=== PATIENT | male | born 1935 | race Two or more races ===

== ENCOUNTER 2016-07-15 13:03 | Emergency (ER) | payer MEDICARE, OTHER ==
[~2016-07-15 13:03] MED LIST: SUCCINYLCHOLINE CHLORIDE INJ 200 MG/10 ML VIAL ONE
--- NOTE | 2016-07-15 13:24 | ER Document Report ---
ED Neuro Symptoms/Deficit - General Mode of Arrival: Medic Information source: Patient, Relative, Emergency Med Personnel Notes: Patient is an 80-year-old male presenting to the emergency department via EMS concerned of stroke symptoms onset at some point last night or this morning. Patient's states that he ate cereal this morning, but was unable to stand up after that, and fell down. Patient's noticed something wrong when she noticed that he wasn't breathing like he normally does when he sleeps at 0600 this morning. Patient's denies any loss of consciousness. As of now, patient is experiencing slurred speech, left-sided deficit, right-sided facial droop. There is evidence of vomit on his shirt. EMS states that he was 97% oxygen saturation on room air. Patient has a different story, stating that he fell in the bathroom this morning and his was unable to help him up, so she called an ambulance. Patient has a history of heart murmur, right knee replacement, and cortisone shots in his left shoulder (last week). - HPI Patient complains to provider of: Difficulty standing, Facial Droop - Right, Falling, Speech Impairment, Weakness - Left sided Onset: This morning Awoke with symptoms: Yes Exact time of onset: unknown Symptoms are: Noted on awakening Duration: Continues in ED, More than 3 hrs Pain Level: Denies Context: Falling Loss of consciousness: No loss of consciousness Was STROKE ALERT Called: Yes Baseline Cognitive: Alert, oriented X 3 Alert To: Name/Voice Patient Orientation: Person, Place, Time, Events New weakness: LUE, LLE, R facial Decreased ability to stand/walk: Cannot stand Impaired speech/swallowing: Difficult Associated symptoms: denies: Headache <STACY OLIVER - Last Filed: 07/15/16 14:40> <HAO GASCA - Last Filed: 07/15/16 17:35> - General Chief Complaint: S/S of Possible Stroke Stated Complaint: STROKE ALERT - Related Data Allergies/Adverse Reactions: Penicillins Allergy (Verified 07/15/16 13:34) Past Medical History - General Information source: Patient, Relative, Emergency Med Personnel, [facility] Records - Social History Smoking Status: Unknown if Ever Smoked Lives with: Spouse/Significant other Family History: Reviewed & Not Pertinent - Past Medical History Cardiac Medical History: Reports: Hx Heart Murmur Musculoskeltal Medical History: Reports Hx Arthritis Past Surgical History: Reports: Hx Orthopedic Surgery - Right knee replacement <KARTHIK OLIVERSSICA - Last Filed: 07/15/16 14:40> Review of Systems - Review of Systems Constitutional: See HPI, Weakness EENT: No symptoms reported Cardiovascular: No symptoms reported Respiratory: No symptoms reported Gastrointestinal: No symptoms reported Genitourinary: No symptoms reported Male Genitourinary: No symptoms reported Musculoskeletal: No symptoms reported Skin: No symptoms reported Hematologic/Lymphatic: No symptoms reported Neurological/Psychological: See HPI, Weakness - Left side deficit, Speech impairment <KARTHIK OLIVERSSICA - Last Filed: 07/15/16 14:40> Physical Exam - Vital signs Interpretation: Hypertensive - General General appearance: Lethargic - HEENT Head: Normocephalic, Atraumatic <STACY OLIVER - Last Filed: 07/15/16 14:40> - Vital signs Vitals: Pulse Resp BP Pulse Ox 82 20 152/100 H 98 07/15/16 13:05 07/15/16 13:05 07/15/16 13:05 07/15/16 13:05 <HAO GASCA - Last Filed: 07/15/16 17:35> Course - Laboratory Result Diagrams: 07/15/16 13:21 07/15/16 13:21 - Consults anesthesia Time consulted: 13:18 - Paged Consulted provider: will come to ER - to secure airway for transfer. [facility] Time consulted: 13:44 Reason for consultation: 07/15/16 13:44 Dr. Johnson states that there are no beds at [facility], and suggests trying another facility. [place] Transfer Line Time consulted: 14:00 - Paged to discuss patient transfer, awaiting return call. [facility] transfer line Time consulted: 14:40 Reason for consultation: 07/15/16 14:42 [facility] Spann has not returned the call, so we are contacting [facility] transfer center. <STACY OLIVER - Last Filed: 07/15/16 14:40> - Re-evaluation Re-evalutation: 07/15/16 16:52 I personally performed the services described in the documentation, reviewed and edited the documentation which was dictated to my scribe in my presence, and it accurately records my words and actions. Patient presents emergency Department with an unknown time of onset severe strokelike symptoms sent directly to CT scanner. I went over to the CT scanner got report from EMS. EMS gave a slightly different report then the patient and the . They said that they reported that 9:00 this morning she tried to walk him to have breakfast and he fell. Patient briefly told us that he had breakfast but was unable to [place] any further history when the right arrives she says she has no idea when the onset of symptoms were. Patient arrived with severe severe right-sided facial droop partial gag reflex. In the left upper extremity left lower extremity leaning to the left. He was quickly ascertained and talk to Dr. Hugo showing a subacute right basal ganglial or infarct without hemorrhage. Due to the fact that the patient was out of the window for thrombolytics this was discussed as well. Patient presented to be an extremely difficult airway when I assessed the airway. I contacted our regional stroke center at [facility] Dr. Johnson and they stated that the patient should be intubated for flight but that they did not have any beds. Contacted anesthesia who came down and intubated the patient without any difficulty. At this point I contacted [facility] spoke with Dr. Siddharth Virgen at 1350 he called me back at 1445 he stated along with the transfer line at that time that the patient was on a long waiting list and they didn't expect to get a bed anytime soon and I communicated with them at this point that I was going to go ahead and call another facility try to get him closer they verbalize understanding of this I went ahead and call Dr. Landrum at [facility] who accepted the patient and sent and accepting crew at 1442. [facility] helicopter showed up prior to the [facility] helicopter getting here stating that the patient got a bed. We were never contacted in regards to any beds being available and had discussed with the transfer line making other arrangements. At this point the helicopter crew was here and so I went ahead and transfer the patient via [facility] and canceled the [facility] transport. Patient has remained stable blood pressure controlled multiple updates with and family. Spoke with Dr. Siddharth Virgen in [place] who said that there was a waiting list and they didn't think there be any beds available anytime soon. Therefore I contacted [facility] Dr. Diaz who agreed to accept the transfer of the patient and helicopter was in route. [facility] helicopter showed up in the emergency from stating that they had a bed they did not call us back and stated they had a bed so we went ahead and transfer them with [place] called [facility] back and cancel [facility] transport. 07/15/16 17:26 07/15/16 17:33 07/15/16 17:34 - Vital Signs Vital signs: Temp Pulse Resp BP Pulse Ox 97.3 F 79 10 L 135/91 H 100 07/15/16 13:42 07/15/16 13:08 07/15/16 15:45 07/15/16 16:15 07/15/16 16:15 - Laboratory Result Diagrams: 07/15/16 13:21 07/15/16 13:21 Laboratory results interpreted by me: 07/15/16 07/15/16 13:21 13:21 RDW 14.9 H Lymphocytes % 9.1 L Monocytes % 15.5 H Absolute Monocytes 1.6 H BUN 29 H <HAO GASCA - Last Filed: 07/15/16 17:35> Critical Care Note - Critical Care Note Total time excluding time spent on procedures (mins): 120 <HAO GASCA - Last Filed: 07/15/16 17:35> ED [employer]/Exc Criteria ED NIH Stroke Scale - NIH Stroke Scale *: 1. NIH scale should be completed with appropriate accompanying assessment tools. *: 2. The NIH should reflect what the patient is capable of doing and should not be coached by the clinician. 1a. Level of Consciousness: 0=Alert;keenly responsive -: 1=Drowsy -: 2=Obtunded -: 3=Coma/unresponsive or reflex to noxious stimuli. 1a. Responses: 1 1b. Orientation Questions: a. What month is it? -: b. How old are you? -: 0=Answers both questions correctly. -: 1=Answers one question correctly or patient is intubated or has orotracheal trauma. -: 2=Answers neither question correctly. 1b. Responses: 0 1c. Response to commands: a. Open and close eyes? -: b. Youth Development Professional and release hand? -: Credit is given despite weakness. Demonstration of task is permitted. Substitute command if hands cannot be used. -: 0=Performs both tasks correctly -: 1=Performs one task correctly -: 2=Performs neither task correctly 1c. Responses: 0 2. Gaze: Establish eye contact and instruct patient to "Follow my finger" -: 0=Normal -: 1=Partial gaze palsy. Gaze is abnormal in one or both eyes, but where forced deviation or total gaze paresis is not present. -: 2=Forced deviation or total gaze paresis. 2. Responses: 1 3. Visual [place]: Sees fingers in all four quadrants. -: 0=No visual loss. -: 1=Partial hemianopsia. -: 2=Complete hemianopsia. -: 3=Bilateral hemianopsia (including Cortical blindness) 4. Facial Movement: Instruct patient to: -: a. Show me your teeth -: b. Raise your eyebrows -: c. Close your eyes -: d. Smile -: 0=Normal symmetrical movement -: 1=Minor paralysis (flattened nasolabial fold, asymmetry on smiling). -: 2=Partial paralysis (total or near total paralysis of lower face). -: 3=Complete paralysis of upper and lower face 5. Motor functions (left arm): Alternate sides and extend each arm with palms down (90 degrees if sitting or 45 degrees for supine). -: 0=No drift;limb holds for full 10 seconds. -: 1=Drift; limb holds but drifts down before full 10 seconds, but does not hit bed. -: 2=Some effort against gravity; limb cannot get to or maintain position. -: 3=No effort against gravity; limb falls. -: 4=No movement. -: UN=Amputation, joint fusion, explain in comments. 5. Motor Functions (right arm): Alternate sides and extend each arm with palms down (90 degrees if sitting or 45 degrees for supine). -: 0=No drift;limb holds for full 10 seconds. -: 1=Drift; limb holds but drifts down before full 10 seconds, but does not hit bed. -: 2=Some effort against gravity; limb cannot get to or maintain position. -: 3=No effort against gravity; limb falls. -: 4=No movement. -: UN=Amputation, joint fusion, explain in comments. 6. Motor Functions (left leg): With patient lying supine, alternate sides and extend each leg (30 degrees always while supine). -: 0=No drift, leg holds position for full 5 seconds -: 1=Drift; leg falls before full 5 seconds but does not hit bed. -: 2=Some effort against gravity, leg falls to bed but some effort against gravity. -: 3=No effort against gravity, leg falls to bed immediately. -: 4=No movement. -: UN=Amputation, joint fusion; explain in comments. 6. Motor Functions (right leg): With patient lying supine, alternate sides and extend each leg (30 degrees always while supine). -: 0=No drift, leg holds position for full 5 seconds -: 1=Drift; leg falls before full 5 seconds but does not hit bed. -: 2=Some effort against gravity, leg falls to bed but some effort against gravity. -: 3=No effort against gravity, leg falls to bed immediately. -: 4=No movement. -: UN=Amputation, joint fusion; explain in comments. 7. Limb Ataxia: With eyes open instruct patient to: -: a. "Touch your finger to your nose". -: b. "Touch your heel to your lewis" -: 0=Absent -: 1=Present in one limb. -: 2=Present in two limbs. -: UN=Amputation or joint fusion; explain in comments. 8. Sensory: Test sensation using pinprick or noxious stimuli. Test as many body parts as possible. -: 0=Normal;no sensory loss -: 1=Mile to moderate sensory loss (patient feels pin prick but is less sharp on affected side). -: 2=Severe or total sensory loss. 9. Best Language: Instruct patient to: -: a. "Describe what you see in this picture." -: b. "Name the items in this picture." -: c. "Read these sentences." -: 0=No aphasia, normal -: 1=Mild to moderate aphasia. -: 2=Severe aphasia -: 3=Mute, global aphasia, no usable speech or auditory comprehension. 10. Articulation, Dysarthia: Instruct patient to: -: "Read these words" or "Repeat these words" -: 0=Normal -: 1=Mild to moderate; patient may slur some words but can be understood without difficulty. -: 2=Severe; patients speech so slurred as to be unintelligible in the absence of dysphasia. -: UN=Intubated or other physical barrier, explain in comments. 11. Extinction or inattention: 0=No abnormality -: 1= Visual, tactile, auditory, spatial, or personal inattention or extinction to bilateral simulation in one or the sensory modalities. -: 2=Profound james-inattention or james-inattention to more than one modality; does not recognize own hand. Total Score: 2 <STACY OLIVER - Last Filed: 07/15/16 14:40> Discharge <STACY OLIVER - Last Filed: 07/15/16 14:40> <HAO GASCA - Last Filed: 07/15/16 17:35> - Discharge Clinical Impression: subacute ischemic infarct, CVA symptoms requiring intubation Condition: Serious Disposition: [facility] Scribe Documentation - Scribe Written by Scribe:: Stacy Oliver 07/15/2016 1319 acting as scribe for :: Dr. Gasca <STACY OLIVER - Last Filed: 07/15/16 14:40>
[2016-07-15 13:40] LABS: PROTHROMBIN TIME 13.2 SEC (11.4-15.4)
[2016-07-15 13:41] LABS: PARTIAL THROMBOPLASTIN TIME 28.4 SEC (23.5-35.8)
[2016-07-15 13:55] LABS: ALANINE AMINOTRANSFERASE 25 U/L (21-72); ALBUMIN 4.3 g/dL (3.5-5.0); ALKALINE PHOSPHATASE 79 U/L (38-126); ANION GAP 12 (5-19); ASPARTATE AMINO TRANSFERASE 24 U/L (17-59); BILIRUBIN,DIRECT 0.4 mg/dL (0.0-0.4); BILIRUBIN,TOTAL 0.9 mg/dL (0.2-1.3); BLOOD UREA NITROGEN 29 mg/dL (7-20); CALCIUM 9.4 mg/dL (8.4-10.2); CARBON DIOXIDE 29 mmol/L (22-30); CHLORIDE 103 mmol/L (98-107); CREATINE KINASE 57 U/L (55-170); CREATININE RESULT 1.08 mg/dL (0.52-1.25); GLUCOSE 87 mg/dL (75-110); POTASSIUM 4.7 mmol/L (3.6-5.0); SODIUM 143.5 mmol/L (137-145); TOTAL PROTEIN 8.1 g/dL (6.3-8.2)
[2016-07-15] MEDS ORDERED: ETOMIDATE INJ/PF 20 MG/10 ML SDV IV ONE (14:01)
[2016-07-15] MEDS ORDERED: PROPOFOL 100 ML IV ONE (14:02)
[2016-07-15 14:04] LABS: ABSOLUTE BASOPHILS # (AUTO) 0.1 10^3/uL (0.0-0.2); ABSOLUTE EOSINOPHILS # (AUTO) 0.2 10^3/uL (0.0-0.6); ABSOLUTE LYMPHOCYTES (AUTO) 0.9 10^3/uL (0.5-4.7); ABSOLUTE MONOCYTES (AUTO) 1.6 10^3/uL (0.1-1.4); ABSOLUTE NEUT (AUTO) 7.4 10^3/uL (1.7-8.2); BASOPHILS % (AUTO) 0.9 % (0-2); EOSINOPHILS % (AUTO) 1.7 % (0-6); HEMATOCRIT 45.3 % (37.9-51.0); HEMOGLOBIN 15.1 g/dL (13.5-17.0); LYMPHOCYTES % (AUTO) 9.1 % (13-45); MEAN CORPUSCULAR HEMOGLOBIN 31.1 pg (27.0-33.4); MEAN CORPUSCULAR HGB CONC 33.3 g/dL (32.0-36.0); MEAN CORPUSCULAR VOLUME 93 fl (80-97); MONOCYTES % (AUTO) 15.5 % (3-13); RED BLOOD COUNT 4.85 10^6/uL (4.35-5.55); RED CELL DISTRIBUTION WIDTH 14.9 % (11.5-14.0); SEGMENTED NEUTROPHILS % (AUTO) 72.8 % (42-78); WHITE BLOOD COUNT 10.2 10^3/uL (4.0-10.5)
[2016-07-15 14:07] LABS: CREATINE KINASE MB 1.43 ng/mL (<4.55); TROPONIN I 0.017 ng/mL
[2016-07-15] MEDS ORDERED: PROPOFOL 100 ML IV PRN (14:36)
[2016-07-15] MEDS ORDERED: VECURONIUM BROMIDE INJ 10 MG VIAL IV ONE (15:07)
[2016-07-15] MEDS ORDERED: MIDAZOLAM 2 MG/2 ML INJ ONE (15:07)
[2016-07-15 17:32] VITALS: BP 115/85
--- NOTE | 2016-07-15 20:26 | EKG REPORT ---
SEVERITY:- ABNORMAL ECG - PACEMAKER SPIKES OR ARTIFACTS ATRIAL FIBRILLATION LEFT AXIS DEVIATION : Confirmed by: Rah Ashley 15-Jul-2016 20:24:56
== END 2016-07-15 17:05 | disposition short-term general hospital (02) ==
LOC: ER 13:03
PROC: 0BH17EZ Insertion of Endotracheal Airway into Trachea, Via Natural or Artificial Opening (ICD-10-PCS; principal; 2016-07-15)
DX: I63.9 Cerebral infarction, unspecified (principal); W19.XXXA Unspecified fall, initial encounter; Y92.009 Unspecified place in unspecified non-institutional (private) residence as the place of occurrence of the external cause
CPT/HCPCS: 93005; 99291; 99292; 51702; 36415; 82553; 82550; 85025; 85610; 85730; 80053; 84484; 71010; 70450; 93010; 31500; J2250; J2704; J3490; J0330

== ENCOUNTER 2018-10-05 14:38 | Emergency (ER) | payer MEDICARE, OTHER ==
[2018-10-05 14:46] VITALS: BP 143/79
--- NOTE | 2018-10-05 15:29 | ER Document Report ---
ED General - General Chief Complaint: Laceration Stated Complaint: HAND AND LEG LACERATION Time Seen by Provider: 10/05/18 15:28 TRAVEL OUTSIDE OF THE [place] IN LAST 30 DAYS: No - HPI Notes: 82-year-old male to the emergency department with complaints of laceration to his left pinky finger as well as to his right upper thigh that occurred just prior to arrival. States he is using a cylinder grinder to make chicken cubes when the blade "blew up". States the blade of the cylinder grinder cut his hand as well as his thigh. States that he is on Eliquis so he was bleeding quite a bit. States that he is not not sure of his tetanus status. Denies any change in his range of motion of the right leg or the left hand. He is right-hand dominant. - Related Data Allergies/Adverse Reactions: Penicillins Allergy (Verified 10/05/18 14:43) Past Medical History - General Information source: Patient, Relative - Social History Smoking Status: Never Smoker Chew tobacco use (# tins/day): No Frequency of alcohol use: None Drug Abuse: None Family History: Reviewed & Not Pertinent Patient has suicidal ideation: No Patient has homicidal ideation: No - Past Medical History Cardiac Medical History: Reports: Hx Hypercholesterolemia, Hx Hypertension, Hx Heart Murmur Renal/ Medical History: Denies: Hx Peritoneal Dialysis Musculoskeletal Medical History: Reports Hx Arthritis Past Surgical History: Reports: Hx Orthopedic Surgery - Right knee replacement Review of Systems - Review of Systems Constitutional: denies: Chills, Fever EENT: No symptoms reported Cardiovascular: denies: Chest pain, Palpitations, Heart racing, Syncope, Dizziness, Lightheaded Respiratory: denies: Cough, Short of breath Gastrointestinal: denies: Abdominal pain, Diarrhea, Nausea, Vomiting Musculoskeletal: Other - Laceration to the right upper thigh and to the left pinky finger. Left pinky finger pain. Skin: Other - Laceration to the left pinky finger and to the right upper thigh, abrasion to the right upper arm Neurological/Psychological: No symptoms reported -: Yes All other systems reviewed and negative Physical Exam - Vital signs Vitals: Temp Pulse Resp BP Pulse Ox 98.7 F 78 18 143/79 H 98 10/05/18 14:42 10/05/18 14:42 10/05/18 14:42 10/05/18 14:42 10/05/18 14:42 Interpretation: Normal - General General appearance: Appears well In distress: None - HEENT Head: Normocephalic, Atraumatic Eyes: Normal Pupils: PERRL - Respiratory Respiratory status: No respiratory distress Chest status: Nontender Breath sounds: Normal Chest palpation: Normal - Cardiovascular Rhythm: Regular Heart sounds: Normal auscultation Murmur: No - Abdominal Inspection: Normal Distension: No distension Bowel sounds: Normal Tenderness: Nontender Organomegaly: No organomegaly - Back Back: Normal, Nontender - Extremities Hand: Laceration - A laceration to the lateral aspect of the left pinky finger with mild oozing of blood. There is noted ecchymosis to the edges of the wound. There is no other abrasion or laceration to the hand or to the right hand. Range of motion of all fingers against resistance and flexion, extension, adduction, abduction, opposition with 5 out of 5 strength. Cap refill is less than 2 seconds. Radial pulses are intact and equal. No evidence of tendon la ceration. No: No evidence of FB, Swelling, Tendon deficit - Neurological Neuro grossly intact: Yes Cognition: Normal Orientation: AAOx4 Samara Coma Scale Eye Opening: Spontaneous Samara Coma Scale Verbal: Oriented Samara Coma Scale Motor: Obeys Commands Samara Coma Scale Total: 15 Speech: Normal Motor strength normal: LUE, RUE, LLE, RLE Sensory: Normal - Psychological Associated symptoms: Normal affect, Normal mood - Skin Skin Temperature: Warm Skin Moisture: Dry Skin Color: Normal - There is a puncture wound to the anterior right thigh with mild surrounding ecchymosis. Bleeding is controlled. Wound is explored and there is no evidence of foreign body. Course - Vital Signs Vital signs: Temp Pulse Resp BP Pulse Ox 98.7 F 78 18 143/79 H 98 10/05/18 14:42 10/05/18 14:42 10/05/18 14:42 10/05/18 14:42 10/05/18 14:42 - Transfer of Care Notes: 10/05/18 17:17 imPression: Left pinky laceration with no evidence of tendon laceration. Patient tolerated repair well. There is a puncture wound to the right thigh that does not require suturing. We will plan on updating the patient's tetanus shot. We will send home with Keflex for coverage for dirty wound. Bleeding was controlled at time of discharge. We will have patient return in 7 days for suture removal. Patient and significant other who is bedside agree with the plan. Procedures - Laceration/Wound Repair Left Lateral Finger Time completed: 17:18 Wound length (cm): 3 Wound's Depth, Shape: Superficial Laceration pre-procedure: Sterile PPE donned, Sterile drapes applied, Shur-Clens applied Anesthetic type: 1% Lidocaine Volume Anesthetic (mLs): 5 Wound explored: No foreign body removed Irrigated w/ Saline (mLs): 100 Wound Debrided: Minimal Wound Repaired With: Sutures Suture Size/Type: 4:0, Ethilon Number of Sutures: 5 Layer Closure?: No Post-procedure wound care: Splint applied Post-procedure NV exam normal: Yes Complications: No Discharge - Discharge Clinical Impression: Finger laceration, Puncture wound of thigh Condition: Good Disposition: HOME, SELF-CARE Instructions: Tetanus Immunization Given (OM), Laceration Care (OM), Soap Cleansing (OM) Additional Instructions: Remove dressing carefully in 24 hours. Complete antibiotics. Suture removal in 7 days. Wear splint to protect finger. Prescriptions: Doxycycline Hyclate 100 mg PO BID #14 capsule Referrals: TANJA NICHOLS FNP [Primary Care Provider] - 10/12/18 (For suture removal. )
[2018-10-05] MEDS ORDERED: LIDOCAINE 1% INJ-PF (10 MG/ML) 30 ML SDV INJ ONE (15:42)
--- NOTE | 2018-10-05 15:46 | RADIOLOGY REPORT (SQ) ---
EXAM DESCRIPTION: FEMUR RIGHT COMPLETED DATE/TIME: 10/05/2018 3:37 pm REASON FOR STUDY: possible foreign object, bleeding COMPARISON: None. NUMBER OF VIEWS: Two views. TECHNIQUE: Two radiographic images acquired of the right femur to include hip and knee in at least o ne projection. LIMITATIONS: None. FINDINGS: MINERALIZATION: Normal. BONES: No acute fracture. No worrisome bone lesions. SOFT TISSUES: No obvious swelling or foreign body. OTHER: Total knee arthroplasty. IMPRESSION: No foreign body or fracture identified. TECHNICAL DOCUMENTATION: JOB ID: [id number] [employer]- All Rights Reserved Reading location - IP/workstation name: [email or web address]
--- NOTE | 2018-10-05 15:47 | RADIOLOGY REPORT (SQ) ---
EXAM DESCRIPTION: HAND LEFT 3 VIEWS COMPLETED DATE/TIME: 10/05/2018 3:37 pm REASON FOR STUDY: possible foreign object COMPARISON: None. EXAM PARAMETERS: NUMBER OF VIEWS: Three views. TECHNIQUE: AP, lateral and oblique radiographic images acquired of the left hand. LIMITATIONS: None. FINDINGS: MINERALIZATION: Normal. BONES: No acute fracture or dislocation. No worrisome bone lesions. JOINTS: Degenerative joint changes seen in the 1st interphalangeal joint and in some of the distal in terphalangeal joints. SOFT TISSUES: There is a small radiopaque foreign body in the soft tissues in the tip of the 3rd digi t. OTHER: No other significant finding. IMPRESSION: Foreign body. Degenerative joint disease. TECHNICAL DOCUMENTATION: JOB ID: [id number] [employer]- All Rights Reserved Reading location - IP/workstation name: [email or web address]
[2018-10-05] MEDS ORDERED: DIPH/PERTUSS(ACELL)/TETANUS VAC/PF 0.5 ML SYR (>=10YO) IM ONE (17:06)
== END 2018-10-05 18:15 | disposition home or self-care (01) ==
LOC: ER 14:38
DX: S61.217A Laceration without foreign body of left little finger without damage to nail, initial encounter (principal); S71.111A Laceration without foreign body, right thigh, initial encounter; W29.0XXA Contact with powered kitchen appliance, initial encounter; Y92.009 Unspecified place in unspecified non-institutional (private) residence as the place of occurrence of the external cause; E78.00 Pure hypercholesterolemia, unspecified; I10 Essential (primary) hypertension; Z79.01 Long term (current) use of anticoagulants; Z96.651 Presence of right artificial knee joint; Z23 Encounter for immunization
CPT/HCPCS: 99283; 90471; 73552; 73130; 90715; 12002; J3490

== ENCOUNTER 2018-10-12 11:46 | Emergency (ER) | payer MEDICARE, OTHER ==
[2018-10-12 12:06] VITALS: BP 125/84
--- NOTE | 2018-10-12 12:48 | ER Document Report ---
ED Suture/Wound Recheck - General Chief Complaint: Suture Removal Stated Complaint: SUTURE REMOVAL Time Seen by Provider: 10/12/18 12:15 Primary Care Provider: TANJA NICHOLS FNP [Primary Care Provider] - Follow up as needed Mode of Arrival: Ambulatory Information source: Patient Notes: 82-year-old male presented to ED for removal of sutures to his left fifth f terrence. Old chart stated that he had 5 sutures but only 4 sutures were noted at this time. Patient is alert oriented respirations regular and unlabored speaking in full sentences walks with even steady gait. TRAVEL OUTSIDE OF THE [place] IN LAST 30 DAYS: No - HPI Previous ED treatment: Laceration repair Antibiotics given previously: Prescription Quality of pain: Achy Severity: Mild Pain Level: 1 Context: Injury Symptoms since procedure: Pain. denies: Drainage, Fever, Numbness, Red streaks, Redness, Swelling, Weakness Exacerbated by: Movement Relieved by: Denies - Related Data Allergies/Adverse Reactions: Penicillins Allergy (Verified 10/12/18 11:49) Past Medical History - General Information source: Patient - Social History Smoking Status: Never Smoker Frequency of alcohol use: None Drug Abuse: None Lives with: Family Family History: Reviewed & Not Pertinent - Past Medical History Cardiac Medical History: Reports: Hx Hypercholesterolemia, Hx Hypertension, Hx Heart Murmur Pulmonary Medical History: Reports: None EENT Medical History: Reports: None Neurological Medical History: Reports: None Endocrine Medical History: Reports: None Renal/ Medical History: Reports: None Malignancy Medical History: Reports None GI Medical History: Reports: None Musculoskeletal Medical History: Reports Hx Arthritis Skin Medical History: Reports None Psychiatric Medical History: Reports: None Traumatic Medical History: Reports: None Infectious Medical History: Reports: None Past Surgical History: Reports: Hx Orthopedic Surgery - Right knee replacement Review of Systems - Review of Systems Constitutional: No symptoms reported EENT: No symptoms reported Cardiovascular: No symptoms reported Respiratory: No symptoms reported Gastrointestinal: No symptoms reported Genitourinary: No symptoms reported Male Genitourinary: No symptoms reported Musculoskeletal: No symptoms reported Skin: Other - Needs sutures removed from left pinky finger Hematologic/Lymphatic: No symptoms reported Neurological/Psychological: No symptoms reported -: Yes All other systems reviewed and negative Physical Exam - Vital signs Vitals: Temp Pulse Resp BP Pulse Ox 98.9 F 75 18 125/84 95 10/12/18 12:05 06/25/19 12:05 10/12/18 12:05 10/12/18 12:05 10/12/18 12:05 Interpretation: Normal - General General appearance: Appears well, Alert - HEENT Head: Normocephalic, Atraumatic Eyes: Normal Pupils: PERRL - Respiratory Respiratory status: No respiratory distress Chest status: Nontender Breath sounds: Normal Chest palpation: Normal - Cardiovascular Rhythm: Regular Heart sounds: Normal auscultation Murmur: No - Abdominal Inspection: Normal Distension: No distension Bowel sounds: Normal Tenderness: Nontender Organomegaly: No organomegaly - Back Back: Normal, Nontender - Extremities General upper extremity: Normal color, Normal ROM, Normal temperature General lower extremity: Normal inspection, Nontender, Normal color, Normal ROM, Normal temperature, Normal weight bearing. No: Cha's sign Hand: Tender, Laceration - Healing laceration to left pinky finger. Incision opened up minimally when sutures were removed so Steri-Strips were placed., No evidence of human bite, No evidence of FB. No: Abrasion, Deformity, Dislocation, Ecchymosis, Instability, Swelling, Tendon deficit - Neurological Neuro grossly intact: Yes Cognition: Normal Orientation: AAOx4 Byers Coma Scale Eye Opening: Spontaneous Byers Coma Scale Verbal: Oriented Samara Coma Scale Motor: Obeys Commands Samara Coma Scale Total: 15 Speech: Normal Motor strength normal: LUE, RUE, LLE, RLE Sensory: Normal - Psychological Associated symptoms: Normal affect, Normal mood - Skin Skin Temperature: Warm Skin Moisture: Dry Skin Color: Normal Course - Vital Signs Vital signs: Temp Pulse Resp BP Pulse Ox 98.9 F 75 18 125/84 95 10/12/18 12:05 10/12/18 12:05 10/12/18 12:05 10/12/18 12:05 10/12/18 12:05 Procedures - Laceration/Wound Repair Left Finger 5th digit Time completed: 14:50 Wound length (cm): 2 Wound's Depth, Shape: Superficial, Linear Laceration pre-procedure: Sterile PPE donned Anesthetic type: Other Volume Anesthetic (mLs): 0 Wound explored: Clean Irrigated w/ Saline (mLs): 10 Wound Repaired With: Steri-strips Discharge - Discharge Clinical Impression: Visit for suture removal Condition: Stable Disposition: HOME, SELF-CARE Instructions: Suture Removal Additional Instructions: Care of Steri-Strip Closure Your cut has been closed up with a special surgical tape. For this type of cut, it can replace stitches. You must protect the wound just as you would with stitches, however. For the first few days, keep the wound area completely dry. This also means you should avoid activity which makes you sweat. Do not move the area if motion stretches or wrinkles the strips. Don't allow the area to be bumped -- if bleeding occurs, the blood can make the strips loosen. The strips are somewhat waterproof. After a few days, the physician may allow you to shower. Be sure to ask if it's OK. Do not remove the tape until it peels off by itself. At that time, the wound should be healed. SOAP CLEANSING: Gently wash the wound daily using a mild soap (like Ivory, Phisoderm, Neutrogena). Use warm water, rubbing gently until all debris, ooze, and crusting have been washed from the wound. Allow to dry briefly (about 10 minutes) after cleaning. Repeat this cleansing at least three times a day for the first two days and then once or twice a day. ANTIBIOTIC OINTMENT PROTECTION: Your wounds are such that dressing them is not practical or optional. After cleansing, you should apply a thin coating of antibiotic ointment (Bacitracin, not Neosporin) to the wounds at least three times daily. This l essens infection risk, and may decrease the amount of scarring. Use a q-tip or dull butter knife, not your finger, to apply this ointment. Any debris or ooze which builds up in the ointment should be gently rubbed off with a sterile gauze pad. Harder crusting may need to be gently scrubbed off with a clean wash cloth with soap and warm water, perhaps applying a warm, wet wash cloth to the wound for ten minutes first. Development of redness, severe itching, or blistering may mean allergy to the ointment. See the doctor. FOLLOW-UP CARE: If you have been referred to a physician for follow-up care, call the physicians office for an appointment as you were instructed or within the next two days. If you experience worsening or a significant change in your symptoms, notify the physician immediately or return to the Emergency Department at any time for re-evaluation. Referrals: TANJA NICHOLS FNP [Primary Care Provider] - Follow up as needed
== END 2018-10-12 12:59 | disposition home or self-care (01) ==
LOC: ER 11:46
DX: S61.217D Laceration without foreign body of left little finger without damage to nail, subsequent encounter (principal); X58.XXXD Exposure to other specified factors, subsequent encounter; I10 Essential (primary) hypertension; Z88.0 Allergy status to penicillin